=== PATIENT | female | born 1945 | race Caucasian/White ===

== ENCOUNTER → 2017-04-17 | Outpatient (CLI) | payer MEDICARE ==
[~2017-04-17] MED LIST: AMLO10 PO; AMOCLA500 PO; ASPI325 PO; ATEN100 PO; BENZ100A PO; CEPH500 PO; ESOM20 PO; FEXPSEER PO; GABA300 PO; GABA600 PO; HYDHCL25 PO; Klor-Con M1010 MEQ PO; LAMO100 PO; LEVFLO500 PO; LOSA25 PO; LOSHYD100 PO; METO25ER PO; NAPR500 PO; Norco 5-325 Ta1 EACH PO; ONDA4ODT MM; PARO20 PO; PRAVASTATIN SOD10 MG PO; Percocet 5-3251 EACH PO; Prednisone20 MG PO; RANI150 PO; SACC250C PO; TRAZ50 PO; TROSPIUM 20 MG; Vesicare10 MG PO; ZOLP10 PO; ZOLPIDEM TART12.5 MG PO
[2017-04-17 13:13] LABS: BASOPHILS ABSOLUTE AUTO 0.01 K/mm3 (0.00-0.23); BASOPHILS PERCENT AUTO 0 % (0-2); EOSINOPHILS ABSOLUTE AUTO 0.14 K/mm3 (0.00-0.68); EOSINOPHILS PERCENT AUTO 2 % (0-6); Hematocrit 36.9 % (33.0-51.0); Hemoglobin 11.2 g/dL (11.5-16.0); IMMATURE GRAN ABSOLUTE AUTO 0.02 K/mm3 (0.00-0.10); IMMATURE GRAN PERCENT AUTO 0 % (0-1); LYMPHOCYTES ABSOLUTE AUTO 1.39 K/mm3 (0.84-5.20); LYMPHOCYTES PERCENT AUTO 19 % (21-46); MONOCYTES ABSOLUTE AUTO 0.36 K/mm3 (0.16-1.47); MONOCYTES PERCENT AUTO 5 % (4-13); Mean Corpuscular HGB 23.9 pg (26.0-34.0); Mean Corpuscular HGB Conc 30.4 g/dL (31.5-36.5); Mean Corpuscular Volume 79 fL (80-100); Mean Platelet Volume 10.6 fL (9.1-12.4); NEUTROPHILS ABSOLUTE AUTO 5.36 K/mm3 (1.96-9.15); NEUTROPHILS PERCENT AUTO 74 % (41-73); Platelet Count 320 K/mm3 (150-400); RDW Coefficient Variation 17.4 % (11.7-14.2); RDW Standard Deviation 49.5 fL (35.1-46.3); Red Blood Cell Count 4.69 M/mm3 (3.80-5.20); White Blood Cell Count 7.28 K/mm3 (4.00-11.30)
[2017-04-17 13:27] LABS: Alanine Aminotransfer (ALT/SGP 15 U/L (12-78); Albumin, Blood 3.6 g/dL (3.4-5.0); Albumin/Globulin Ratio 1.1 (0.8-1.8); Alk Phos 194 U/L (40-126); Anion Gap 7 mmol/L (6-16); Aspartate Aminotrans (AST/SGOT 17 U/L (12-37); Bilirubin, Total 0.3 mg/dL (0.1-1.0); Blood Urea Nitrogen 12 mg/dL (8-24); CO2, Blood 28 mmol/L (21-32); Calcium, Blood 8.9 mg/dL (8.5-10.1); Chloride, Blood 105 mmol/L (98-108); Creatinine, Blood 0.63 mg/dL (0.40-1.00); Globulin, Blood 3.4 g/dL (2.2-4.0); Glomerular Filtration Rate >60 (60-); Glucose, Blood 95 mg/dL (70-99); Potassium, Blood 3.4 mmol/L (3.5-5.5); Sodium, Blood 140 mmol/L (136-145)
[2017-04-17 17:33] LABS: International Normalized Ratio 1.02; Prothrombin Time Results 10.6 Sec (9.7-11.5)
[2017-04-18 18:50] LABS: Percent Saturation 6.5 % (15.0-50.0)
[2017-04-20 10:52] LABS: Antinuclear Antibody Screen Negative (Negative)
[2017-04-20 13:33] LABS: Rheumatoid Factor, Serum Negative (Negative)
== END | disposition home or self-care (01) ==
LOC: LAB SHORT 13:05
PROVIDERS: General Practice
DX: R58 Hemorrhage, not elsewhere classified (principal); D68.59 Other primary thrombophilia; L50.9 Urticaria, unspecified; N39.0 Urinary tract infection, site not specified; D64.9 Anemia, unspecified
CPT/HCPCS: 80053; 83540; 83550; 85025; 85610; 85651; 85730; 86038; 86200; 86430; 87086

== ENCOUNTER → 2017-08-19 | Outpatient (CLI) | payer MEDICARE ==
[~2017-08-19] MED LIST changes: -AMOCLA500 PO; -HYDHCL25 PO
== END ==
LOC: LAB SHORT 16:05 → LAB EV 16:05
DX: N39.0 Urinary tract infection, site not specified (principal)
CPT/HCPCS: 87086

== ENCOUNTER → 2017-12-11 | Outpatient (CLI) | payer MEDICARE ==
[~2017-12-11] MED LIST changes: +AMOCLA500 PO; +HYDHCL25 PO
== END | disposition home or self-care (01) ==
LOC: LAB SHORT 18:06 → LAB EV 18:06
DX: R30.0 Dysuria (principal)
CPT/HCPCS: 87086

== ENCOUNTER → 2018-04-23 | Outpatient (CLI) | payer MEDICARE ==
[~2018-04-23] MED LIST changes: +Voltaren100 GM TOP
== END ==
LOC: LAB EV 16:31 → LAB SHORT 16:31
DX: N39.0 Urinary tract infection, site not specified (principal)
CPT/HCPCS: 87077; 87086; 87186

== ENCOUNTER 2018-04-30 12:40 | Emergency (ER) | payer MEDICARE ==
[~2018-04-30] VITALS: Ht 160 cm; Wt 90.7 kg
[~2018-04-30 12:40] MED LIST changes: -Voltaren100 GM TOP
[2018-04-30 13:04] LABS: BASOPHILS ABSOLUTE AUTO 0.01 K/mm3 (0.00-0.23); BASOPHILS PERCENT AUTO 0 % (0-2); EOSINOPHILS ABSOLUTE AUTO 0.14 K/mm3 (0.00-0.68); EOSINOPHILS PERCENT AUTO 2 % (0-6); Hematocrit 41.3 % (33.0-51.0); Hemoglobin 12.8 g/dL (11.5-16.0); IMMATURE GRAN ABSOLUTE AUTO 0.04 K/mm3 (0.00-0.10); IMMATURE GRAN PERCENT AUTO 1 % (0-1); LYMPHOCYTES ABSOLUTE AUTO 1.71 K/mm3 (0.84-5.20); LYMPHOCYTES PERCENT AUTO 22 % (21-46); MONOCYTES ABSOLUTE AUTO 0.51 K/mm3 (0.16-1.47); MONOCYTES PERCENT AUTO 7 % (4-13); Mean Corpuscular HGB 27.2 pg (26.0-34.0); Mean Corpuscular Volume 88 fL (80-100); Mean Platelet Volume 10.6 fL (9.1-12.4); NEUTROPHILS ABSOLUTE AUTO 5.27 K/mm3 (1.96-9.15); NEUTROPHILS PERCENT AUTO 69 % (41-73); Platelet Count 272 K/mm3 (150-400); RDW Coefficient Variation 15.2 % (11.7-14.2); RDW Standard Deviation 49.4 fL (35.1-46.3); White Blood Cell Count 7.68 K/mm3 (4.00-11.30)
[2018-04-30 13:23] LABS: Alanine Aminotransfer (ALT/SGP 19 U/L (12-78); Albumin, Blood 3.6 g/dL (3.4-5.0); Albumin/Globulin Ratio 1.1 (0.8-1.8); Alk Phos 169 U/L (50-136); Anion Gap 9 mmol/L (6-16); Aspartate Aminotrans (AST/SGOT 20 U/L (12-37); Bilirubin, Total 0.3 mg/dL (0.1-1.0); Blood Urea Nitrogen 13 mg/dL (8-24); Bun/Creatinine Ratio 17.6 (12.0-20.0); CO2, Blood 27 mmol/L (21-32); Calcium, Blood 8.9 mg/dL (8.5-10.1); Chloride, Blood 106 mmol/L (98-108); Creatinine, Blood 0.74 mg/dL (0.40-1.00); Globulin, Blood 3.4 g/dL (2.2-4.0); Glomerular Filtration Rate >60 (60-); Glucose, Blood 121 mg/dL (70-99); Potassium, Blood 3.8 mmol/L (3.5-5.5); Sodium, Blood 142 mmol/L (136-145); Troponin I <0.015 ng/mL (0.000-0.040)
[2018-04-30] MEDS ORDERED: Voltaren100 GM TOP (14:43)
== END 2018-04-30 14:52 | disposition home or self-care (01) ==
LOC: ER 12:40
PROVIDERS: Physician Assistant
DX: R07.89 Other chest pain (principal); M25.512 Pain in left shoulder; Z79.899 Other long term (current) drug therapy; I10 Essential (primary) hypertension; K21.9 Gastro-esophageal reflux disease without esophagitis; F32.9 Major depressive disorder, single episode, unspecified
CPT/HCPCS: 36415; 71046; 80053; 84484; 85025; 93005; 93010; 99285-25

== ENCOUNTER 2018-09-29 12:34 | Emergency (ER) | payer MEDICARE ==
[~2018-09-29] VITALS: Ht 160 cm; Wt 93.0 kg
[~2018-09-29 12:34] MED LIST changes: +Voltaren100 GM TOP
[2019-01-04] MEDS ORDERED: Vesicare10 MG PO (12:10)
[2019-01-04] MEDS ORDERED: PARO30 PO (12:10)
[2019-01-04] MEDS ORDERED: POTA10T PO (12:10)
[2019-01-04] MEDS ORDERED: DOXE10 PO (12:11)
[2019-01-04] MEDS ORDERED: PRAVASTATIN SOD10 MG PO (12:11)
[2019-01-04] MEDS ORDERED: ZOLP10 PO (12:11)
[2019-01-04] MEDS ORDERED: Preservision A1 EACH PO (12:11)
[2019-01-04] MEDS ORDERED: HYDPAM25 PO (12:12)
[2019-01-04] MEDS ORDERED: Lamictal100 MG PO ×2 (12:12)
[2019-01-04] MEDS ORDERED: LOSARTAN-HCTZ1 EAC2 PO (12:13)
== END 2018-09-29 13:12 | disposition home or self-care (01) ==
LOC: ER 12:34 → EDSTATUS 12:35 → ER 13:12
DX: S52.572A Other intraarticular fracture of lower end of left radius, initial encounter for closed fracture (principal); W10.9XXA Fall (on) (from) unspecified stairs and steps, initial encounter; I10 Essential (primary) hypertension; K21.9 Gastro-esophageal reflux disease without esophagitis; F32.9 Major depressive disorder, single episode, unspecified; Z79.899 Other long term (current) drug therapy
CPT/HCPCS: 29125; 73090; 73100; 73120; 99283-25

== ENCOUNTER 2019-01-11 06:45 | Day surgery (SDC) | payer MEDICARE ==
[~2019-01-11] VITALS: Ht 160 cm; Wt 92.4 kg
[~2019-01-11 06:45] MED LIST changes: +DOXE10 PO; +HYDPAM25 PO; +LOSARTAN-HCTZ1 EAC2 PO; +Lamictal100 MG PO; +PARO30 PO; +POTA10T PO; +Preservision A1 EACH PO
[2019-01-11] MEDS ORDERED: Melatonin1 MG (07:29)
[2019-01-11] MEDS ORDERED: VIT1CAPS12 (07:30)
--- NOTE | 2019-01-11 07:33 | NUR ---
01/11/19 0733 Anna Kaplan D 1 IN [facility] IN RH BY EFREN VALVE 1 GOOD IV IN RH BY PT TOW
--- NOTE | 2019-01-11 08:24 | NUR ---
01/11/19 0824 Daphnie Campoverde AIRWAY ASSISTANCE REQUIRED AND DONE BY ELADIO VALERO PATIENT OBSTRUCTED THROUGHOUT PROCEDURE AND REQUIRED CONTINUED JAW THRUST (AGRESSIVE) IN ORDER TO KEEP HER FROM OBSTRUCTING. PATIENT COUGHED AND OBSTRUCTED VERY EASILY. USED NON REBREATHER DURING ONE EPISODE WHERE SATS DROPPED INTO HIGH 70'S PROCEDURE WAS PAUSED AND ALLOWED HER SATS TO COME BACK UP TO 90'S BEFORE PROCEEDING. ATTEMPT AT DILATING WITH SAVORY WAS UNSUCCESSFUL BUT WAS ABLE TO DILATE WITH DANIEL. PROCEDURE WAS COMPLETED AND PATIENT STABLE
== END 2019-01-11 08:56 | disposition home or self-care (01) ==
LOC: ORSCSDS 06:45
PROVIDERS: Internal Medicine Gastroenterology
PROC: 0D758ZZ Dilation of Esophagus, Via Natural or Artificial Opening Endoscopic (ICD-10-PCS; principal; 2019-01-11 08:00)
PROC: 0DB68ZX Excision of Stomach, Via Natural or Artificial Opening Endoscopic, Diagnostic (ICD-10-PCS; principal; 2019-01-11 08:00)
DX: R13.10 Dysphagia, unspecified (principal); K29.70 Gastritis, unspecified, without bleeding; K22.10 Ulcer of esophagus without bleeding; K22.2 Esophageal obstruction; K44.9 Diaphragmatic hernia without obstruction or gangrene; K29.80 Duodenitis without bleeding; I10 Essential (primary) hypertension; G47.33 Obstructive sleep apnea (adult) (pediatric); F41.8 Other specified anxiety disorders; G40.909 Epilepsy, unspecified, not intractable, without status epilepticus; F03.90 Unspecified dementia, unspecified severity, without behavioral disturbance, psychotic disturbance, mood disturbance, and anxiety; I48.91 Unspecified atrial fibrillation; E78.00 Pure hypercholesterolemia, unspecified; Z79.899 Other long term (current) drug therapy
CPT/HCPCS: 88305; 88312; J0461; J2405; J2704; J7120

== ENCOUNTER 2022-06-12 14:19 | Emergency (ER) | payer OTHER, MEDICARE ==
[~2022-06-12] VITALS: Ht 160 cm; Wt 81.7 kg
[~2022-06-12 14:19] MED LIST changes: +Melatonin1 MG; +VIT1CAPS12
[2022-06-12] MEDS ORDERED: LIDO700A20 TOP (17:20)
== END 2022-06-12 17:33 | disposition home or self-care (01) ==
LOC: ER 14:19
DX: R07.81 Pleurodynia (principal); I10 Essential (primary) hypertension; W54.1XXA Struck by dog, initial encounter; Z79.899 Other long term (current) drug therapy
CPT/HCPCS: 71101; 99283-25; A9270

== ENCOUNTER 2023-04-04 12:16 | Emergency (ER) | payer OTHER, MEDICARE ==
[~2023-04-04] VITALS: Ht 160 cm; Wt 81.7 kg
[~2023-04-04 12:16] MED LIST changes: +LIDO700A20 TOP
[2023-04-04 12:21] VITALS: BP 138/95
[2023-04-04] MEDS ORDERED: Norco 5-325 Ta1 EACH PO (13:28)
== END 2023-04-04 13:49 | disposition home or self-care (01) ==
LOC: ER 12:16
DX: M54.50 Low back pain, unspecified (principal); R56.9 Unspecified convulsions; I10 Essential (primary) hypertension; G47.00 Insomnia, unspecified; R32 Unspecified urinary incontinence; W01.0XXA Fall on same level from slipping, tripping and stumbling without subsequent striking against object, initial encounter; Z88.8 Allergy status to other drugs, medicaments and biological substances; Z79.899 Other long term (current) drug therapy
CPT/HCPCS: 72100; 99283-25; A9270

== ENCOUNTER 2023-05-24 13:28 | Emergency (ER) | payer MEDICARE ==
[~2023-05-24] VITALS: Ht 160 cm; Wt 88.5 kg
[2023-05-24 13:56] VITALS: BP 156/67
== END 2023-05-24 17:22 | disposition home or self-care (01) ==
LOC: ER 13:28
DX: M51.36 Other intervertebral disc degeneration, lumbar region (principal); I10 Essential (primary) hypertension; K21.9 Gastro-esophageal reflux disease without esophagitis; E78.5 Hyperlipidemia, unspecified; G47.30 Sleep apnea, unspecified; Z91.81 History of falling; Z79.899 Other long term (current) drug therapy; Z88.8 Allergy status to other drugs, medicaments and biological substances
CPT/HCPCS: 72131; 99283-25

== ENCOUNTER 2024-04-25 09:48 | Day surgery (SDC) | payer MEDICARE | END 2024-04-25 23:00 | disposition home or self-care (01) | LOC: MOI US 09:48 → MOI MAM 10:15 → MOI US 23:00 | DX: C50.812 Malignant neoplasm of overlapping sites of left female breast (principal) | CPT/HCPCS: 19285; 77065; A4648 ==

== ENCOUNTER 2024-05-02 08:52 | Day surgery (SDC) | payer MEDICARE ==
[2024-05-02] VITALS (11 sets, daily range): BP systolic 118–158; BP diastolic 54–82
[~2024-05-02 08:52] MED LIST changes: +AMLO5 PO; +D-MANNOSE; +DOCU100 PO; +DONEPEZIL HCL10 MG PO; +Estrace Vagin42.5 GM VAG; +GEMTESA75 MG PO; +HYDROCODONE-AC1 EA10 PO; +KETO.5OPSO BOTHEYES; +LOSARTAN POTAS100 M1 PO; +MEMA10 PO; +MIRALAX17 GM PO; +MYRBETRIQ50 MG PO; +OMEP20ER PO; +PRAV20 PO; +TOLT4 PO
[2024-05-02] MEDS ORDERED: CeFAZolin Sodium 2,000 MG in NS 100 ML IV SCH ×2 (09:00→13:20)
[2024-05-02] MEDS ORDERED: Lactated Ringer's 1,000 ML IV SCH ×2 (09:00→13:20)
[2024-05-02] MEDS ORDERED: Bupivacaine 0.5% HCl 5 MG/ML 30MLVIAL ONE (09:38)
[2024-05-02] MEDS ORDERED: MEMA5TAB PO (10:02)
[2024-05-02] MEDS ORDERED: LAMO100 PO (10:05)
[2024-05-02] MEDS ORDERED: Methylene Blue 1% 100 MG/10 ML VIAL ONE (10:59)
[2024-05-02] MEDS ORDERED: Citric Acid/Sodium Citrate 30 ML BTL PO ONE (11:00)
[2024-05-02] MEDS ORDERED: Metoclopramide HCl 5MG / ML 2ML Vial IV ONE (11:05)
[2024-05-02] MEDS ORDERED: propofoL 40 ML IV ONE ×2 (11:58→12:50)
[2024-05-02] MEDS ORDERED: ePHEDrine Sulfate 50 MG/ML 1ML Injection ONE (12:00)
[2024-05-02] MEDS ORDERED: FentaNYL Citrate 50 MCG/ML 2 ML Injection ONE (12:08)
[2024-05-02] MEDS ORDERED: Dexamethasone Sod Phos 10 MG/ML 1ML VIAL ONE (12:25)
[2024-05-02] MEDS ORDERED: Ondansetron HCl 2 MG / ML 2ML Vial ONE (12:25)
[2024-05-02] MEDS ORDERED: HYDROmorphone HCl/Pf 1MG SYR ONE (13:07)
--- NOTE | 2024-05-02 15:41 | NUR ---
Discharge instructions reviewed with patient. Patient verbalizes understanding. Copy given to patient to take home. Prescription given to pt's before surgery. Dressing c/d/i. Breast binder in place. Patient States Post-Procedure ride home has been arranged. Discharged via wheelchair to private car for ride home.
== END 2024-05-02 15:40 | disposition home or self-care (01) ==
LOC: NM 08:52 → ORSCMMR 08:52 → NM 15:40
PROVIDERS: Surgery
PROC: 0HBU0ZZ Excision of Left Breast, Open Approach (ICD-10-PCS; principal; 2024-05-02 12:00)
PROC: 07B60ZX Excision of Left Axillary Lymphatic, Open Approach, Diagnostic (ICD-10-PCS; principal; 2024-05-02 12:00)
DX: C50.812 Malignant neoplasm of overlapping sites of left female breast (principal); D36.0 Benign neoplasm of lymph nodes; Z17.0 Estrogen receptor positive status [ER+]; Z17.21 Progesterone receptor positive status; Z17.32 Human epidermal growth factor receptor 2 negative status; I10 Essential (primary) hypertension; E78.5 Hyperlipidemia, unspecified; G47.33 Obstructive sleep apnea (adult) (pediatric); K21.9 Gastro-esophageal reflux disease without esophagitis; I48.91 Unspecified atrial fibrillation; F32.A Depression, unspecified; E66.9 Obesity, unspecified; Z68.36 Body mass index [BMI] 36.0-36.9, adult; Z79.899 Other long term (current) drug therapy
CPT/HCPCS: 38792; 76098; 88307; 88341; 88342; A9270; A9537; J0690; J1100; J1171; J2405; J2704; J2765; J3010; J7120; Q9968

== ENCOUNTER 2024-06-16 01:38 | Emergency (ER) | payer MEDICARE ==
[~2024-06-16] VITALS: Ht 157.5 cm; Wt 88.5 kg
[~2024-06-16 01:38] MED LIST changes: +MEMA5TAB PO
[2024-06-16] MEDS ORDERED: Morphine Sulfate 4 MG/1 ML Injection IV ONE (02:25)
[2024-06-16 02:40] LABS: BASOPHILS ABSOLUTE AUTO 0.07 K/mm3 (0.00-0.23); BASOPHILS PERCENT AUTO 1 % (0-2); EOSINOPHILS ABSOLUTE AUTO 0.24 K/mm3 (0.00-0.68); EOSINOPHILS PERCENT AUTO 2 % (0-6); Hematocrit 42.8 % (33.0-51.0); Hemoglobin 13.8 g/dL (11.5-16.0); IMMATURE GRAN ABSOLUTE AUTO 0.02 K/mm3 (0.00-0.10); IMMATURE GRAN PERCENT AUTO 0 % (0-1); LYMPHOCYTES ABSOLUTE AUTO 0.89 K/mm3 (0.84-5.20); LYMPHOCYTES PERCENT AUTO 8 % (21-46); MONOCYTES ABSOLUTE AUTO 1.24 K/mm3 (0.16-1.47); MONOCYTES PERCENT AUTO 10 % (4-13); Mean Corpuscular HGB 27.8 pg (26.0-34.0); Mean Corpuscular HGB Conc 32.2 g/dL (31.5-36.5); Mean Corpuscular Volume 86 fL (80-100); NEUTROPHILS ABSOLUTE AUTO 9.43 K/mm3 (1.96-9.15); NEUTROPHILS PERCENT AUTO 79 % (41-73); Platelet Count 207 K/mm3 (150-400); RDW Standard Deviation 44.3 fL (35.1-46.3); Red Blood Cell Count 4.96 M/mm3 (3.80-5.20); White Blood Cell Count 11.89 K/mm3 (4.00-11.30)
[2024-06-16 02:57] LABS: Albumin, Blood 3.6 g/dL (3.4-5.0); Bilirubin, Total 0.2 mg/dL (0.1-1.0); Bun/Creatinine Ratio 23.9 (12.0-20.0); Calcium, Blood 8.9 mg/dL (8.5-10.1); Creatinine, Blood 0.54 mg/dL (0.40-1.00); Globulin, Blood 3.5 g/dL (2.2-4.0); Potassium, Blood 3.8 mmol/L (3.5-5.5); Total Protein, Blood 7.1 g/dL (6.4-8.2)
[2024-06-16 03:00] LABS: International Normalized Ratio 1.01; Prothrombin Time Results 10.8 Sec (9.7-11.5)
[2024-06-16] MEDS ORDERED: Methocarbamol 500 MG Tab PO ONE (03:30)
[2024-06-16] MEDS ORDERED: Diazepam 5 MG / ML 2ML SYR IV ONE (03:40)
[2024-06-16 04:30] VITALS: BP 139/57
[2024-06-16] MEDS ORDERED: HYDROmorphone HCl/Pf 1MG SYR IV ONE (04:30)
[2024-06-16] MEDS ORDERED: RX Prepack 6 Tabs Oxycodone 5mg UD ONE (05:00)
[2024-06-16] MEDS ORDERED: Robaxin750 MG PO (05:01)
== END 2024-06-16 05:20 | disposition home or self-care (01) ==
LOC: ER 01:38
PROVIDERS: Student in an Organized Health Care Education/Training Program
DX: M54.50 Low back pain, unspecified (principal); G89.29 Other chronic pain; I10 Essential (primary) hypertension; K21.9 Gastro-esophageal reflux disease without esophagitis; G47.30 Sleep apnea, unspecified; Z98.890 Other specified postprocedural states
CPT/HCPCS: 72131; 80053; 85025; 85610; 85730; 96374; 96375; 99284-25; J1171; J2270; J3360

== ENCOUNTER → 2024-10-10 | Outpatient (CLI) | payer MEDICARE ==
[~2024-10-10] MED LIST changes: +Robaxin750 MG PO
== END ==
LOC: LAB SHORT 12:51 → LAB 12:51
DX: N39.0 Urinary tract infection, site not specified (principal)
CPT/HCPCS: 87077; 87086; 87186

== ENCOUNTER → 2024-12-28 | Outpatient (CLI) | payer MEDICARE | LOC: LAB SHORT 14:18 → LAB 14:18 | DX: N39.0 Urinary tract infection, site not specified (principal) | CPT/HCPCS: 87077; 87086; 87186 ==

== ENCOUNTER 2025-04-03 09:00 | Emergency (ER) | payer MEDICARE ==
[~2025-04-03] VITALS: Ht 160 cm; Wt 86.2 kg
[2025-04-03 09:56] LABS: BASOPHILS ABSOLUTE AUTO 0.03 K/mm3 (0.00-0.23); BASOPHILS PERCENT AUTO 0 % (0-2); EOSINOPHILS ABSOLUTE AUTO 0.09 K/mm3 (0.00-0.68); EOSINOPHILS PERCENT AUTO 1 % (0-6); Hematocrit 50.3 % (33.0-51.0); Hemoglobin 16.2 g/dL (11.5-16.0); IMMATURE GRAN ABSOLUTE AUTO 0.04 K/mm3 (0.00-0.10); IMMATURE GRAN PERCENT AUTO 0 % (0-1); LYMPHOCYTES ABSOLUTE AUTO 1.00 K/mm3 (0.84-5.20); LYMPHOCYTES PERCENT AUTO 11 % (21-46); MONOCYTES ABSOLUTE AUTO 0.91 K/mm3 (0.16-1.47); MONOCYTES PERCENT AUTO 10 % (4-13); Mean Corpuscular HGB Conc 32.2 g/dL (31.5-36.5); Mean Corpuscular Volume 94 fL (80-100); NEUTROPHILS ABSOLUTE AUTO 7.44 K/mm3 (1.96-9.15); NEUTROPHILS PERCENT AUTO 78 % (41-73); NRBC ABSOLUTE 0.00 K/mm3 (0.00-0.02); NRBC Auto 0.0 /100 WBC (0.0-0.2); Platelet Count 192 K/mm3 (150-400); RDW Coefficient Variation 13.1 % (11.7-14.2); RDW Standard Deviation 45.7 fL (35.1-46.3)
[2025-04-03 10:01] LABS: Alanine Aminotransfer (ALT/SGP 35.0 U/L (12-78); Albumin, Blood 3.8 g/dL (3.4-5.0); Albumin/Globulin Ratio 1.0 (0.8-1.8); Anion Gap 8.0 mmol/L (3-11); Aspartate Aminotrans (AST/SGOT 28.0 U/L (12-37); Bilirubin, Total 0.4 mg/dL (0.1-1.0); Blood Urea Nitrogen 17.0 mg/dL (8-24); CO2, Blood 26.0 mmol/L (21-32); Calcium, Blood 8.7 mg/dL (8.5-10.1); Chloride, Blood 110.0 mmol/L (98-108); Creatinine, Blood 0.69 mg/dL (0.40-1.00); Globulin, Blood 3.7 g/dL (2.2-4.0); Glucose, Blood 138.0 mg/dL (70-99); Potassium, Blood 3.7 mmol/L (3.5-5.5); Sodium, Blood 140.0 mmol/L (136-145); Total Protein, Blood 7.5 g/dL (6.4-8.2)
[2025-04-03] MEDS ORDERED: NS 1,000 ML IV SCH (10:50)
[2025-04-03 12:39] VITALS: BP 147/65
== END 2025-04-03 12:40 | disposition home or self-care (01) ==
LOC: ER 09:00
PROVIDERS: Emergency Medicine
DX: R19.7 Diarrhea, unspecified (principal); Z79.899 Other long term (current) drug therapy; I10 Essential (primary) hypertension; K21.9 Gastro-esophageal reflux disease without esophagitis; G47.30 Sleep apnea, unspecified
CPT/HCPCS: 74177; 80053; 85025; 96360-59; 99284-25; J7030; Q9967